=== PATIENT | female | born 1970 | race Caucasian/White ===

== ENCOUNTER 2016-06-21 06:42 | Day surgery (SDC) | payer OTHER ==
[~2016-06-21 06:42] MED LIST: ACETAMINOPHEN 500 MG TAB PO ONE; PREGABALIN 150 MG CAP PO ONE; ceFAZolin 2 GM/DEXTROSE 100 ML IV ONE
[2016-06-21] MEDS ORDERED: LIDOCAINE 1% 5 ML SDV ONE (07:39)
[2016-06-21] MEDS ORDERED: BUPIVACAINE/EPI 0.25% 30 ML SDV ONE (07:41)
[2016-06-21] MEDS ORDERED: LIDOCAINE 1% 5 ML SDV ID PRN (07:52)
[2016-06-21] MEDS ORDERED: LR 1,000 ML IV ONE (07:52)
[2016-06-21] MEDS ORDERED: CLINDAMYCIN 900 MG/DEXTROSE 50 ML IV ONE (08:00)
[2016-06-21] MEDS ORDERED: MIDAZOLAM 2 MG/2 ML VIAL ONE (09:25)
[2016-06-21] MEDS ORDERED: fentaNYL 100 MCG/2 ML INJ ONE ×2 (09:29→12:27)
[2016-06-21] MEDS ORDERED: PROPOFOL/EMULSION 500 MG/50 ML BOTTLE IV ONE (09:30)
[2016-06-21] MEDS ORDERED: ONDANSETRON 4 MG/2 ML VIAL ONE (09:31)
[2016-06-21] MEDS ORDERED: DEXAMETHASONE 4 MG/ML VIAL ONE ×2 (09:31)
[2016-06-21] MEDS ORDERED: LIDOCAINE 2% JELLY 5 ML TUBE ONE (09:32)
[2016-06-21] MEDS ORDERED: LIDOCAINE 2% 100 MG/5 ML SYR IVP ONE (09:32)
[2016-06-21] MEDS ORDERED: OXYCODONE/APAP 5/325 TAB ONE (13:41)
== END 2016-06-21 14:30 | disposition home or self-care (01) ==
LOC: FSGY 06:42
PROVIDERS: ATTEND Orthopaedic Surgery Sports Medicine
PROC: 0SQ94ZZ Repair Right Hip Joint, Percutaneous Endoscopic Approach (ICD-10-PCS; principal; 2016-06-21 08:30)
DX: M24.151 Other articular cartilage disorders, right hip (principal); M94.251 Chondromalacia, right hip
CPT/HCPCS: 29914; 29916; 76001; C1769; C1713; J0171; J1100; J2001; J2250; J2405; J2704; J3010